=== PATIENT | male | born 1960 | race Caucasian/White ===

== ENCOUNTER 2024-03-12 00:24 | Observation (INO) | payer OTHER ==
[~2024-03-12] VITALS: Ht 180.3 cm; Wt 108.9 kg
[2024-03-12 01:10] LABS: BASOPHILS ABSOLUTE AUTO 0.05 K/mm3 (0.00-0.23); BASOPHILS PERCENT AUTO 1 % (0-2); EOSINOPHILS ABSOLUTE AUTO 0.07 K/mm3 (0.00-0.68); EOSINOPHILS PERCENT AUTO 1 % (0-6); Hematocrit 45.4 % (37.0-53.0); Hemoglobin 15.7 g/dL (13.5-17.5); IMMATURE GRAN ABSOLUTE AUTO 0.06 K/mm3 (0.00-0.10); IMMATURE GRAN PERCENT AUTO 1 % (0-1); LYMPHOCYTES ABSOLUTE AUTO 2.49 K/mm3 (0.84-5.20); LYMPHOCYTES PERCENT AUTO 28 % (21-46); MONOCYTES ABSOLUTE AUTO 0.76 K/mm3 (0.16-1.47); MONOCYTES PERCENT AUTO 9 % (4-13); Mean Corpuscular HGB 29.9 pg (26.0-34.0); Mean Corpuscular HGB Conc 34.6 g/dL (31.5-36.5); Mean Corpuscular Volume 87 fL (80-100); Mean Platelet Volume 9.9 fL (9.1-12.4); NEUTROPHILS ABSOLUTE AUTO 5.34 K/mm3 (1.96-9.15); NEUTROPHILS PERCENT AUTO 61 % (41-73); Platelet Count 196 K/mm3 (150-400); RDW Coefficient Variation 12.2 % (11.7-14.2); RDW Standard Deviation 38.6 fL (35.1-46.3); Red Blood Cell Count 5.25 M/mm3 (4.30-5.90); White Blood Cell Count 8.77 K/mm3 (4.00-11.30)
[2024-03-12 01:28] LABS: Albumin, Blood 3.5 g/dL (3.4-5.0); Albumin/Globulin Ratio 1.1 (0.8-1.8); Bilirubin, Total 0.3 mg/dL (0.1-1.0); Creatinine, Blood 1.28 mg/dL (0.60-1.20); Globulin, Blood 3.3 g/dL (2.2-4.0); Potassium, Blood 4.8 mmol/L (3.5-5.5); Total Protein, Blood 6.8 g/dL (6.4-8.2)
[2024-03-12] MEDS ORDERED: HYDROmorphone HCl/Pf 1MG SYR ONE (01:32)
[2024-03-12] MEDS ORDERED: HYDROmorphone HCl/Pf 1MG SYR IV ONE (01:35)
[2024-03-12] MEDS ORDERED: Ondansetron HCl 2 MG / ML 2ML Vial IV ONE (01:40)
[2024-03-12] MEDS ORDERED: Acetaminophen 325 MG TABLET PO PRN (04:45)
[2024-03-12] MEDS ORDERED: HYDROmorphone HCl/Pf 1MG SYR IV PRN (04:45)
[2024-03-12] MEDS ORDERED: Naloxone HCl 0.4MG / ML 1ML Vial IV PRN (04:45)
[2024-03-12] MEDS ORDERED: FLU VACC TS2024-25(6MOS UP)/PF 45 MCG/0.5 ML SYRINGE IM ONE (04:45)
[2024-03-12] MEDS ORDERED: Ondansetron HCl 2 MG / ML 2ML Vial IV PRN (04:50)
[2024-03-12] MEDS ORDERED: Lactated Ringer's 1,000 ML IV SCH (05:00)
[2024-03-12] MEDS ORDERED: Docusate Sodium 100 MG Cap PO SCH (09:00)
[2024-03-12] MEDS ORDERED: Lactobacil 2-S.Thermo-Bifido 1 1 Cap PO SCH (09:00)
== END 2024-03-12 12:26 | disposition left against medical advice (07) ==
LOC: ER 00:24 → ERHOLD 00:25
PROVIDERS: Physician Assistant; ADMIT Student in an Organized Health Care Education/Training Program
DX: K81.0 Acute cholecystitis (principal); N18.2 Chronic kidney disease, stage 2 (mild); Z53.29 Procedure and treatment not carried out because of patient's decision for other reasons
CPT/HCPCS: 76705; 80053; 83690; 85025; 96361; 96374; 96375; 99285-25; G0378; J1171; J2405; J7120

== ENCOUNTER 2024-04-12 17:23 | Observation (INO) | payer OTHER ==
[~2024-04-12] VITALS: Ht 180.3 cm; Wt 92.1 kg
[2024-04-12 18:17] LABS: BASOPHILS ABSOLUTE AUTO 0.04 K/mm3 (0.00-0.23); BASOPHILS PERCENT AUTO 0 % (0-2); EOSINOPHILS ABSOLUTE AUTO 0.05 K/mm3 (0.00-0.68); EOSINOPHILS PERCENT AUTO 1 % (0-6); Hematocrit 43.8 % (37.0-53.0); Hemoglobin 15.3 g/dL (13.5-17.5); IMMATURE GRAN ABSOLUTE AUTO 0.04 K/mm3 (0.00-0.10); IMMATURE GRAN PERCENT AUTO 0 % (0-1); LYMPHOCYTES ABSOLUTE AUTO 2.45 K/mm3 (0.84-5.20); LYMPHOCYTES PERCENT AUTO 24 % (21-46); MONOCYTES ABSOLUTE AUTO 1.03 K/mm3 (0.16-1.47); MONOCYTES PERCENT AUTO 10 % (4-13); Mean Corpuscular HGB Conc 34.9 g/dL (31.5-36.5); Mean Corpuscular Volume 86 fL (80-100); Mean Platelet Volume 9.8 fL (9.1-12.4); NEUTROPHILS PERCENT AUTO 65 % (41-73); Platelet Count 196 K/mm3 (150-400); RDW Coefficient Variation 12.1 % (11.7-14.2); RDW Standard Deviation 38.3 fL (35.1-46.3); White Blood Cell Count 10.21 K/mm3 (4.00-11.30)
[2024-04-12 18:50] LABS: Albumin, Blood 3.6 g/dL (3.4-5.0); Albumin/Globulin Ratio 1.2 (0.8-1.8); Bilirubin, Total 0.6 mg/dL (0.1-1.0); Calcium, Blood 9.2 mg/dL (8.5-10.1); Globulin, Blood 3.1 g/dL (2.2-4.0); Potassium, Blood 4.4 mmol/L (3.5-5.5); Total Protein, Blood 6.7 g/dL (6.4-8.2)
[2024-04-12] MEDS ORDERED: Ketorolac Tromethamine 15mg Vial IV ONE (19:15)
[2024-04-12] MEDS ORDERED: CefTRIAXone Sodium 1,000 MG in NS 100 ML IV ONE (23:00)
[2024-04-12] MEDS ORDERED: MetroNIDAZOLE 500MG/NS 100 ml 100 ML IV ONE (23:05)
[2024-04-12] MEDS ORDERED: Ondansetron HCl 2 MG / ML 2ML Vial IV PRN (23:20)
[2024-04-12] MEDS ORDERED: FLU VACC TS2024-25(6MOS UP)/PF 45 MCG/0.5 ML SYRINGE IM ONE (23:20)
[2024-04-12] MEDS ORDERED: NS 1,000 ML IV SCH (23:25)
[2024-04-12] MEDS ORDERED: FentaNYL Citrate 50 MCG/ML 2 ML Injection IV PRN (23:25)
[2024-04-13] VITALS (17 sets, daily range): BP systolic 115–167; BP diastolic 58–83
[2024-04-13 04:08] LABS: BASOPHILS ABSOLUTE AUTO 0.04 K/mm3 (0.00-0.23); BASOPHILS PERCENT AUTO 1 % (0-2); EOSINOPHILS ABSOLUTE AUTO 0.05 K/mm3 (0.00-0.68); EOSINOPHILS PERCENT AUTO 1 % (0-6); Hematocrit 43.5 % (37.0-53.0); Hemoglobin 15.2 g/dL (13.5-17.5); IMMATURE GRAN ABSOLUTE AUTO 0.04 K/mm3 (0.00-0.10); IMMATURE GRAN PERCENT AUTO 1 % (0-1); LYMPHOCYTES PERCENT AUTO 30 % (21-46); MONOCYTES ABSOLUTE AUTO 0.84 K/mm3 (0.16-1.47); MONOCYTES PERCENT AUTO 10 % (4-13); Mean Corpuscular HGB 29.9 pg (26.0-34.0); Mean Corpuscular HGB Conc 34.9 g/dL (31.5-36.5); Mean Corpuscular Volume 86 fL (80-100); Mean Platelet Volume 9.6 fL (9.1-12.4); NEUTROPHILS ABSOLUTE AUTO 4.77 K/mm3 (1.96-9.15); NEUTROPHILS PERCENT AUTO 58 % (41-73); Platelet Count 182 K/mm3 (150-400); RDW Coefficient Variation 12.3 % (11.7-14.2); RDW Standard Deviation 38.5 fL (35.1-46.3); Red Blood Cell Count 5.09 M/mm3 (4.30-5.90); White Blood Cell Count 8.24 K/mm3 (4.00-11.30)
[2024-04-13 04:38] LABS: Albumin, Blood 3.5 g/dL (3.4-5.0); Albumin/Globulin Ratio 1.2 (0.8-1.8); Bilirubin, Total 0.5 mg/dL (0.1-1.0); Bun/Creatinine Ratio 19.3 (12.0-20.0); Calcium, Blood 8.9 mg/dL (8.5-10.1); Creatinine, Blood 0.93 mg/dL (0.60-1.20); Potassium, Blood 4.1 mmol/L (3.5-5.5); Total Protein, Blood 6.5 g/dL (6.4-8.2)
[2024-04-13] MEDS ORDERED: Ampicillin Sod/Sulbactam Sod 3 GM in NS 100 ML IV SCH (06:00)
--- NOTE | 2024-04-13 06:32 | NUR ---
NOTIFIED DR LEYVA ANS SERVICE OF CONSULT.
[2024-04-13] MEDS ORDERED: Aspir 8181 MG PO (10:26)
[2024-04-13] MEDS ORDERED: ROSUVASTATIN CA20 MG PO (10:26)
[2024-04-13] MEDS ORDERED: LISI20 PO (10:26)
[2024-04-13] MEDS ORDERED: Indocyanine Green 25 MG Vial IV ONE (10:40)
--- NOTE | 2024-04-13 12:25 | NUR ---
E[place] (pt) is awake and conversational. Pt is waiting to undergo gall bladder surgery. Pt seems to be invigorated by extensive discussion. Assessed pt's life up till now. Provided active and empathetic listening. 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 Pt is now retired and does not have any local connections and has moved to the area six months ago. Pt does not attend hindu and reports that he prays mostly for the sake of expressing gratitude more so than "having things solved." Pt is optimisitic about surgery and being dischared soon but remains indifferent about the possibility of any complications, up to and including an unexpected . Pt is comfortable and aware of many circumstances being out of his control but remains postive, and continues to be with snf and an increasing lack of urgency. Prayed with pt and he thanked me for the visit.
--- NOTE | 2024-04-13 14:46 | NUR ---
SUMMARY PATIENT NPO AWAITING OR FOR ACUTE JAMILA. DENIES PAIN, NAUSEA. USES URINAL AND IS IND IN ROOM. IV FLUIDS RUNNING @75/HR. ABX INFUSED. USES CALL LIGHT VITALS STABLE.
--- NOTE | 2024-04-13 15:50 | NUR ---
ASSUMED CARE OF PT FROM RONNELL A[place]IN. PT CURRENTLY RESTING IN BED W/ CALL LIGHT IN REACH.
--- NOTE | 2024-04-13 18:10 | NUR ---
UPDATE NO ACUTE CHANGES SINCE ASSUMPTION OF CARE. PT TO PREOP FROM ROOM 224 ON [facility].
[2024-04-13] MEDS ORDERED: Rocuronium Bromide 10 MG/ML 5ML Injection IV ONE ×2 (18:14→19:53)
[2024-04-13] MEDS ORDERED: propofoL 20 ML IV ONE (18:14)
[2024-04-13] MEDS ORDERED: FentaNYL Citrate 50 MCG/ML 2 ML Injection ONE (18:15)
[2024-04-13] MEDS ORDERED: Lactated Ringer's 1,000 ML IV SCH (18:20)
--- NOTE | 2024-04-13 18:34 | NUR ---
PT TO UNIT VIA [facility]. PT ABLE TO TRANSFER INDEPENDENTLY TO [facility] FROM HOSPITAL BED. PT REQUESTS TO KEEP HIS UNDERWEAR ON. GLASSES REMOVED AND PLACED IN PACU WITH PT DEVELOPMENT TECHNICIAN BAG. ALL OTHER BELONGINGS LEFT IN ROOM. History, Chart, Medications and Allergies reviewed before start of procedure. Pre-Op teaching done. Pt verbalizes understanding.
[2024-04-13] MEDS ORDERED: Lidocaine HCl 4% 5 ML SDA ONE (18:52)
[2024-04-13] MEDS ORDERED: Bupivacaine 0.5% HCl 5 MG/ML 30MLVIAL ONE ×2 (19:01→19:23)
[2024-04-13] MEDS ORDERED: Ondansetron HCl 2 MG / ML 2ML Vial ONE (19:27)
[2024-04-13] MEDS ORDERED: Ketorolac Tromethamine 30mg Vial ONE (19:27)
[2024-04-13] MEDS ORDERED: Dexamethasone Sod Phos 10 MG/ML 1ML VIAL ONE (19:27)
[2024-04-13] MEDS ORDERED: Sugammadex Sodium 200 MG/2ML SDV (100 MG/ML) ONE (19:28)
[2024-04-13] MEDS ORDERED: OxyCODONE HCL 5 MG TAB PO PRN (21:15)
[2024-04-13] MEDS ORDERED: Morphine Sulfate 4 MG/1 ML Injection IV PRN (21:15)
[2024-04-13] MEDS ORDERED: Acetaminophen 500 MG Tab PO PRN (21:15)
[2024-04-13] MEDS ORDERED: Ketorolac Tromethamine 15mg Vial IV PRN (21:25)
--- NOTE | 2024-04-13 22:28 | NUR ---
ARRIVAL PT ARRIVED AT 2145 FROM PACU. PT ALERT AND ORIENTED. AWAITING POST OP VOID. PT REPORTED THAT PAIN IS TOLERABLE. VITALS STABLE.
[2024-04-14 00:05] VITALS: BP 130/72
[2024-04-14 04:03] VITALS: BP 140/77
--- NOTE | 2024-04-14 04:55 | NUR ---
SHIFT SUMMARY PT ARRIVED FROM PACU AT 2144. PAIN HAS DECLINED PAIN MEDICATION THROUGHOUT THIS SHIFT AND STATED IT IS TOLERABLE. PT AMBULATED IN HALLWAY AND BACK TO BED AND TOLERATED IT WELL. PT VOIDING IN URINAL. LAP SITES CDI. PT USES CALL LIGHT APPROPRIATELY.
[2024-04-14 07:39] VITALS: BP 138/74
[2024-04-14] MEDS ORDERED: Polyethylene Glycol 3350 17 gm PO SCH (09:00)
[2024-04-14 11:44] VITALS: BP 128/76
--- NOTE | 2024-04-14 14:00 | NUR ---
DISCHARGE: PT DC TO HOME AT THIS TIME. PT TOLERATING DIET WELL. NO REPORTED PAIN. PT AMBULATING INDEP. TOLERATING DIET. VERBALIZED UNDERSTANDING OF INSTRUCTIONS AND FOLLOW UP. IV DC'D WNL. PT LEFT AMBULATORY TO CAR WITH BELONGINGS.
== END 2024-04-14 14:04 | disposition home or self-care (01) ==
LOC: ER 17:23 → SURS 17:24 → ER 04-13 02:11 → SURS 04-13 02:47
PROVIDERS: Student in an Organized Health Care Education/Training Program; Surgery; ADMIT Internal Medicine
PROC: 0FT44ZZ Resection of Gallbladder, Percutaneous Endoscopic Approach (ICD-10-PCS; principal; 2024-04-13 16:00)
DX: K81.2 Acute cholecystitis with chronic cholecystitis (principal); K82.8 Other specified diseases of gallbladder; I25.10 Atherosclerotic heart disease of native coronary artery without angina pectoris; I10 Essential (primary) hypertension; E78.5 Hyperlipidemia, unspecified; Z87.891 Personal history of nicotine dependence; Z79.82 Long term (current) use of aspirin; Z79.899 Other long term (current) drug therapy; Z95.5 Presence of coronary angioplasty implant and graft
CPT/HCPCS: 36415; 76705; 80053; 83690; 83880; 85025; 88304; 93005; 93010; 96365; 96367; 96375; 96376; 99285-25; G0378; J0295; J0696; J1100; J1885; J2003; J2405; J2704; J3010; J7030; J7120